=== PATIENT | male | born 1990 | race Caucasian/White ===

== ENCOUNTER → 2017-08-13 | Emergency (ER) | payer OTHER ==
[~2017-08-13] VITALS: Ht 180.3 cm; Wt 82.6 kg
[~2017-08-13] MED LIST: ALBUTEROL2.5 MG/3 M IH; KETO10TA2 PO; ZITHROMAX500 MG PO; ZYNCOF 20-400120 ML PO; ZYRTEC10 M3 PO
== END | disposition home or self-care (01) ==
LOC: ER 21:29
DX: R07.89 Other chest pain (principal); F41.8 Other specified anxiety disorders; F41.0 Panic disorder [episodic paroxysmal anxiety]